=== PATIENT | female | born 1955 | race Caucasian/White ===

== ENCOUNTER 2020-10-07 19:34 | Observation (INO) ==
[2020-10-07] MEDS ORDERED: PROMETHAZINE INJ 25 MG in SODIUM CHLORIDE 0.9% 50 ML IV PRN (20:36)
[2020-10-07] MEDS ORDERED: chlorproMAZINE INJ 25 MG in SODIUM CHLORIDE 0.9% 100 ML IV PRN (20:36)
[2020-10-07] MEDS ORDERED: diphenhydrAMINE CAP 25 MG CAPSULE PO PRN (20:36)
[2020-10-07] MEDS ORDERED: ALUMINUM/MAGNES/SIMETH MAX STR 30 ML UDCUP PO PRN (20:36)
[2020-10-07] MEDS ORDERED: TEMAZEPAM 7.5 MG CAPSULE PO PRN (20:36)
[2020-10-07] MEDS ORDERED: MYLANTA/LIDO VISC 2:1 300 ML BOTTLE SWISH/SPIT PRN (20:36)
[2020-10-07] MEDS ORDERED: LOPERAMIDE 2 MG CAPSULE PO PRN ×2 (20:36)
[2020-10-07] MEDS ORDERED: BENZTROPINE 2 MG/2 ML AMP IV PRN (20:36)
[2020-10-07] MEDS ORDERED: LACTULOSE 20 GM/30 ML UDCUP PO PRN (20:36)
[2020-10-07] MEDS ORDERED: ONDANSETRON 4 MG/2 ML VIAL IV PRN (20:36)
[2020-10-07] MEDS ORDERED: ACETAMINOPHEN 325 MG TABLET PO PRN ×2 (20:36→20:40)
[2020-10-07] MEDS ORDERED: chlorproMAZINE INJ 50 MG in SODIUM CHLORIDE 0.9% 100 ML IV PRN (20:36)
[2020-10-07] MEDS ORDERED: traMADol 50 MG TABLET PO PRN (20:36)
[2020-10-07] MEDS ORDERED: MYLANTA/LIDO VISC 2:1 300 ML BOTTLE SWISH/SWAL PRN (20:36)
[2020-10-07] MEDS ORDERED: MAGNESIUM HYDROXIDE SUSP 30 ML UDCUP PO PRN (20:36)
[2020-10-07] MEDS ORDERED: guaiFENesin 200 MG/10 ML UDCUP PO PRN (20:36)
[2020-10-07] MEDS ORDERED: chlorproMAZINE 25 MG TABLET PO PRN (20:36)
[2020-10-07] MEDS ORDERED: SODIUM CHLORIDE 0.9% 1,000 ML IV PRN (20:40)
[2020-10-07] MEDS ORDERED: diphenhydrAMINE 50 MG/1 ML VIAL IV PRN (20:40)
[2020-10-07 21:19] LABS: Eosinophils % 4.7 % (0.00-10.9); Hematocrit 22.4 VOL% (35.7-47.0); Hemoglobin 8.3 GM/DL (12.0-16.0); Lymphocytes # 0.2 10*3/uL (1.4-4.0); Lymphocytes % 48.8 % (21.3-54.2); Mean Corpuscular HGB Conc 37.1 GM/DL (32-36); Mean Corpuscular Volume 94.1 FL (87-102); Mean Platelet Volume 9.4 FL (9.6-12.0); Monocytes % 9.3 % (1.7-12.7); Neutrophils % 37.2 % (38.7-73.9); Red Blood Count 2.38 MC/CUMM (3.8-5.5); Red Cell Distribution Width 13.5 % (9.3-17.3)
[2020-10-07 21:20] LABS: Platelet Count 4 T/CUMM (130-400); White Blood Count 0.4 T/CUMM (4-12)
[2020-10-07 21:46] LABS: Albumin 3.4 G/DL (3.4-5.0); Bilirubin,Total 1.1 MG/DL (0.2-1.0); Calcium 8.9 MG/DL (8.5-10.1)
[2020-10-07] MEDS: PIPERACILLIN/TAZOBACTAM 3,375 MG in SODIUM CHLORIDE 0.9% 100 ML IV SCH (23:10)
[2020-10-07 23:23] LABS: Eosinophils 1 % (0-10); Lymphocytes 45 % (20-55); Segmented Neutrophils 47 % (50-85); Total Cells Counted 100
[2020-10-07 23:29] LABS: Microcytosis 1+
[2020-10-07 23:30] LABS: Platelet Estimate Decreased; Polychromasia Slight
[2020-10-07 23:31] LABS: Spherocytes Slight
[2020-10-08 01:02] LABS: Eosinophils % 4.3 % (0.00-10.9); Hematocrit 18.3 VOL% (35.7-47.0); Hemoglobin 6.9 GM/DL (12.0-16.0); Immature Granulocytes % 4.3 %; Immature Granulocytes Absolute 0.01 #; Lymphocytes # 0.1 10*3/uL (1.4-4.0); Lymphocytes % 47.8 % (21.3-54.2); Mean Corpuscular HGB Conc 37.7 GM/DL (32-36); Mean Corpuscular Volume 93.4 FL (87-102); Mean Platelet Volume 11.1 FL (9.6-12.0); Monocytes % 8.7 % (1.7-12.7); Neutrophils % 34.9 % (38.7-73.9); Platelet Count 41 T/CUMM (130-400); Red Blood Count 1.96 MC/CUMM (3.8-5.5); Red Cell Distribution Width 13.5 % (9.3-17.3)
[2020-10-08 01:08] LABS: White Blood Count 0.2 T/CUMM (4-12)
[2020-10-08] MEDS: levETIRAcetam 500 MG TABLET PO SCH ×3 (01:12→21:21)
[2020-10-08] MEDS: ALPRAZolam 0.25 MG TABLET PO PRN (01:25)
[2020-10-08] MEDS ORDERED: SODIUM CHLORIDE 0.9% 1,000 ML IV PRN ×3 (01:48→03:46)
[2020-10-08 03:52] LABS: Eosinophils 3 % (0-10); Lymphocytes 49 % (20-55); Segmented Neutrophils 46 % (50-85); Total Cells Counted 101
[2020-10-08 03:53] LABS: Microcytosis Slight; Platelet Estimate Decreased; Spherocytes Slight
[2020-10-08 03:54] LABS: Polychromasia Slight
[2020-10-08 06:44] LABS: Hematocrit 18.8 VOL% (35.7-47.0); Hemoglobin 6.8 GM/DL (12.0-16.0); Lymphocytes # 0.1 10*3/uL (1.4-4.0); Mean Corpuscular HGB Conc 36.2 GM/DL (32-36); Monocytes % 13.6 % (1.7-12.7); Neutrophils % 36.4 % (38.7-73.9); Platelet Count 51 T/CUMM (130-400); Red Cell Distribution Width 13.4 % (9.3-17.3)
[2020-10-08 06:48] LABS: White Blood Count 0.2 T/CUMM (4-12)
[2020-10-08 07:06] LABS: Hypochromasia 2+; Lymphocytes 60 % (20-55); Microcytosis 1+; Platelet Estimate Decreased; Segmented Neutrophils 40 % (50-85); Total Cells Counted 100
[2020-10-08 07:12] LABS: Calcium 8.6 MG/DL (8.5-10.1)
[2020-10-08] MEDS: DEXAMETHASONE 4 MG TABLET PO SCH (09:32)
[2020-10-08] MEDS: PANTOPRAZOLE 40 MG TABLET PO SCH (09:35)
[2020-10-08] MEDS: AMITRIPTYLINE 25 MG TABLET PO SCH (09:35)
[2020-10-08] MEDS: FILGRASTIM-SNDZ 480 MCG/0.8 ML SYRINGE SUBCUT SCH (09:36)
[2020-10-08] MEDS ORDERED: levETIRAcetam 250 MG TABLET PO ONE (09:40)
[2020-10-08] MEDS ORDERED: CARBOXYMETHYLCELLULOSE 1% OPH SOLN LEFT EYE PRN (16:32)
[2020-10-08] MEDS: PIPERACILLIN/TAZOBACTAM 3,375 MG in SODIUM CHLORIDE 0.9% 100 ML IV SCH ×2 (17:24→17:36)
[2020-10-08] MEDS ORDERED: DEXAMETHASONE 4 MG TABLET PO SCH (19:00)
[2020-10-08] MEDS: levETIRAcetam 250 MG TABLET PO SCH (21:21)
[2020-10-09] MEDS: PIPERACILLIN/TAZOBACTAM 3,375 MG in SODIUM CHLORIDE 0.9% 100 ML IV SCH ×2 (01:39→04:24)
[2020-10-09 07:09] LABS: Eosinophils % 3.8 % (0.00-10.9); Hematocrit 24.9 VOL% (35.7-47.0); Immature Granulocytes % 11.5 %; Immature Granulocytes Absolute 0.03 #; Lymphocytes # 0.1 10*3/uL (1.4-4.0); Mean Corpuscular HGB Conc 36.1 GM/DL (32-36); Mean Corpuscular Volume 92.2 FL (87-102); Mean Platelet Volume 11.7 FL (9.6-12.0); Monocytes % 11.5 % (1.7-12.7); Neutrophils % 23.2 % (38.7-73.9); Red Cell Distribution Width 13.3 % (9.3-17.3)
[2020-10-09 07:14] LABS: White Blood Count 0.3 T/CUMM (4-12)
[2020-10-09 07:15] LABS: Platelet Count 56 T/CUMM (130-400)
[2020-10-09] MEDS: ALPRAZolam 0.25 MG TABLET PO PRN (07:22)
[2020-10-09 07:28] LABS: Hypochromasia 1+; Lymphocytes 40 % (20-55); Microcytosis Slight; Platelet Estimate Decreased; Segmented Neutrophils 20 % (50-85); Total Cells Counted 100
[2020-10-09 07:44] LABS: Albumin 2.8 G/DL (3.4-5.0); Bilirubin,Total 1.6 MG/DL (0.2-1.0); Calcium 8.8 MG/DL (8.5-10.1); Osmolality,Calculated 288.1 MOS/KG (273-304); Total Protein 5.4 G/DL (6.4-8.3)
[2020-10-09] MEDS: FILGRASTIM-SNDZ 480 MCG/0.8 ML SYRINGE SUBCUT SCH (08:43)
[2020-10-09] MEDS: levETIRAcetam 500 MG TABLET PO SCH (08:44)
[2020-10-09] MEDS: AMITRIPTYLINE 25 MG TABLET PO SCH (08:44)
[2020-10-09] MEDS: levETIRAcetam 250 MG TABLET PO SCH (08:44)
[2020-10-09] MEDS: DEXAMETHASONE 4 MG TABLET PO SCH (08:44)
[2020-10-09] MEDS: PANTOPRAZOLE 40 MG TABLET PO SCH (08:44)
[2020-10-09 12:10] VITALS: BP 146/78
[2020-10-09] MEDS ORDERED: CARBOXYMETHYLCELLULOSE 1% OPH SOLN LEFT EYE SCH (12:30)
== END 2020-10-09 15:30 | disposition home or self-care (01) ==
LOC: N.4E
PROVIDERS: ADMIT Internal Medicine Hematology & Oncology; ATTEND Internal Medicine Hematology & Oncology

== ENCOUNTER 2021-03-13 18:50 | Inpatient (IN) ==
[2021-03-13] MEDS ORDERED: SODIUM CHLORIDE 0.9% 1,000 ML IV STA (19:26)
[2021-03-13] MEDS ORDERED: ONDANSETRON 4 MG/2 ML VIAL IV STA (19:26)
[2021-03-13 19:34] LABS: Basophils % 0.3 % (0.0-0.8); Eosinophils % 0.3 % (0.00-10.9); Hematocrit 39.4 VOL% (35.7-47.0); Hemoglobin 13.2 GM/DL (12.0-16.0); Immature Granulocytes % 2.6 %; Immature Granulocytes Absolute 0.08 #; Lymphocytes # 0.2 10*3/uL (1.4-4.0); Lymphocytes % 7.9 % (21.3-54.2); Mean Corpuscular HGB Conc 33.5 GM/DL (32-36); Mean Corpuscular Volume 97.3 FL (87-102); Monocytes % 14.2 % (1.7-12.7); NRBC # 0.08 10*3/uL; Neutrophils % 74.7 % (38.7-73.9); Red Blood Count 4.05 MC/CUMM (3.8-5.5); Red Cell Distribution Width 19.5 % (9.3-17.3)
[2021-03-13 19:41] LABS: Platelet Count 18 T/CUMM (130-400)
[2021-03-13 19:51] LABS: Albumin 2.9 G/DL (3.4-5.0); Calcium 8.6 MG/DL (8.5-10.1); Osmolality,Calculated 281.3 MOS/KG (273-304); Potassium 2.6 MMOL/L (3.5-5.1); Total Protein 5.9 G/DL (6.4-8.2)
[2021-03-13 19:54] LABS: Bacteria,Urine Occasional /HPF (Few); Bilirubin,Urine Negative (Negative); Blood, Urine Small mg/dL (Negative); Glucose,Urine (UA) Negative (Negative); Ketones,Urine Negative (Negative); Mucus,Urine Occasional /LPF (Occasional); Nitrite,Urine Negative (Negative); Protein,Urine Negative; RBC,Urine 1 /HPF (0-4); Urine Appearance Slightly Hazy (Clear); Urine Color Amber (Yellow); Urine Specific Gravity 1.016 (1.001-1.035); WBC,Urine 25 /HPF (0-6)
[2021-03-13 20:01] LABS: Band Neutrophils 1 % (0-10); Lymphocytes 9 % (20-55); Nucleated Red Blood Cells 1 (0-5); Segmented Neutrophils 81 % (50-85); Total Cells Counted 100; Toxic Granulation 1+
[2021-03-13 20:02] LABS: Platelet Estimate Decreased
[2021-03-13 20:03] LABS: Microcytosis Slight; Ovalocytes Few; Polychromasia 1+
[2021-03-13] MEDS ORDERED: CLINDAMYCIN INJ 600 MG in PREMIX 1 EACH IV STA (20:24)
[2021-03-13] MEDS ORDERED: ONDANSETRON 4 MG/2 ML VIAL IV PRN (21:31)
[2021-03-13] MEDS ORDERED: GLUCAGON 1 MG VIAL IM PRN (21:31)
[2021-03-13] MEDS ORDERED: DEXTROSE 50% 25 GM/50 ML VIAL IV PRN (21:31)
[2021-03-13] MEDS ORDERED: POTASSIUM CHLORIDE 20 MEQ TABLET PO ONE (21:33)
[2021-03-13] MEDS ORDERED: diphenhydrAMINE CAP 25 MG CAPSULE PO PRN (21:38)
[2021-03-13] MEDS ORDERED: PROMETHAZINE 25 MG/1 ML VIAL IM PRN (21:38)
[2021-03-13] MEDS ORDERED: SODIUM CHLORIDE 0.9% 1,000 ML IV PRN (21:38)
[2021-03-13] MEDS ORDERED: NICOTINE 21 MG/24 HR PATCH TRANSDERM PRN (21:38)
[2021-03-13] MEDS ORDERED: cefTRIAXone 1,000 MG in SODIUM CHLORIDE 0.9% 100 ML IV SCH (22:00)
[2021-03-13] MEDS: SODIUM CHLOR 0.9% KCL 20 MEQ 20 MEQ/1,000 ML BAG IV SCH (23:59)
[2021-03-14] MEDS: metroNIDAZOLE INJ 500 MG in PREMIX 1 EACH IV SCH ×3 (00:40→23:58)
[2021-03-14 05:27] LABS: Basophils % 0.5 % (0.0-0.8); Eosinophils % 0.5 % (0.00-10.9); Hematocrit 31.5 VOL% (35.7-47.0); Immature Granulocytes % 1.8 %; Immature Granulocytes Absolute 0.04 #; Lymphocytes # 0.1 10*3/uL (1.4-4.0); Lymphocytes % 5.9 % (21.3-54.2); Mean Corpuscular HGB Conc 32.4 GM/DL (32-36); Mean Corpuscular Volume 100.3 FL (87-102); Mean Platelet Volume 10.4 FL (9.6-12.0); Monocytes % 16.7 % (1.7-12.7); NRBC # 0.03 10*3/uL; Neutrophils % 74.6 % (38.7-73.9); Red Cell Distribution Width 19.6 % (9.3-17.3); White Blood Count 2.2 T/CUMM (4-12)
[2021-03-14 05:33] LABS: Hemoglobin 10.2 GM/DL (12.0-16.0); Platelet Count 50 T/CUMM (130-400); Red Blood Count 3.14 MC/CUMM (3.8-5.5)
[2021-03-14 05:48] LABS: Band Neutrophils 1 % (0-10); Hypochromasia 1+; Lymphocytes 8 % (20-55); Microcytosis 1+; Platelet Estimate Decreased; Segmented Neutrophils 79 % (50-85); Total Cells Counted 100
[2021-03-14] MEDS: ACETAMINOPHEN 325 MG TABLET PO PRN ×4 (06:01→22:42)
[2021-03-14 07:46] LABS: Albumin 2.4 G/DL (3.4-5.0); Bilirubin,Total 1.2 MG/DL (0.2-1.0); Osmolality,Calculated 279.3 MOS/KG (273-304); Potassium 3.1 MMOL/L (3.5-5.1); Total Protein 5.1 G/DL (6.4-8.2)
[2021-03-14] MEDS: SODIUM CHLOR 0.9% KCL 20 MEQ 20 MEQ/1,000 ML BAG IV SCH ×3 (09:42→22:47)
[2021-03-14] MEDS ORDERED: DEXAMETHASONE INJ 4 MG in SODIUM CHLORIDE 0.9% 50 ML IV SCH (13:00)
[2021-03-14] MEDS: levETIRAcetam 500 MG TABLET PO SCH ×2 (13:49→22:46)
[2021-03-14] MEDS: PANTOPRAZOLE 40 MG VIAL IV SCH ×2 (13:50→22:47)
[2021-03-14 14:10] LABS: Hepatitis B Core IgM Quant 0.09 Index; Hepatitis B Surface Ag Quant < 0.10 Index; Hepatitis B Surface Ag Result Non-Reactive (NonReactive); Hepatitis C Virus Ab Quant 0.12 Index; Hepatitis C Virus Ab Result Non-Reactive (NonReactive)
[2021-03-14] MEDS: CEFEPIME 1,000 MG in SODIUM CHLORIDE 0.9% 100 ML IV SCH ×2 (16:02→22:49)
[2021-03-15 05:47] LABS: Basophils % 0.4 % (0.0-0.8); Eosinophils % 0.4 % (0.00-10.9); Hematocrit 31.7 VOL% (35.7-47.0); Hemoglobin 9.9 GM/DL (12.0-16.0); Immature Granulocytes % 4.8 %; Immature Granulocytes Absolute 0.11 #; Lymphocytes # 0.1 10*3/uL (1.4-4.0); Lymphocytes % 6.1 % (21.3-54.2); Mean Corpuscular HGB Conc 31.2 GM/DL (32-36); Mean Corpuscular Volume 102.3 FL (87-102); Mean Platelet Volume 12.4 FL (9.6-12.0); Monocytes % 14.3 % (1.7-12.7); NRBC # 0.02 10*3/uL; Platelet Count 51 T/CUMM (130-400); Red Cell Distribution Width 19.9 % (9.3-17.3); White Blood Count 2.3 T/CUMM (4-12)
[2021-03-15 06:13] LABS: Albumin 2.2 G/DL (3.4-5.0); Bilirubin,Total 0.9 MG/DL (0.2-1.0); Calcium 8.1 MG/DL (8.5-10.1); Osmolality,Calculated 284.8 MOS/KG (273-304); Potassium 3.5 MMOL/L (3.5-5.1); Total Protein 4.8 G/DL (6.4-8.2)
[2021-03-15 06:38] LABS: Lymphocytes 5 % (20-55); Nucleated Red Blood Cells 1 (0-5); Platelet Estimate Decreased; Segmented Neutrophils 84 % (50-85); Total Cells Counted 100
[2021-03-15 06:39] LABS: Hypochromasia Slight; Macrocytosis Slight; Polychromasia Slight
[2021-03-15] MEDS ORDERED: MAGNESIUM SULF RIDER 2 GM in PREMIX 1 EACH IV PRN (07:12)
[2021-03-15] MEDS ORDERED: MAGNESIUM SULF RIDER 4 GM in PREMIX 1 EACH IV PRN (07:12)
[2021-03-15] MEDS: CEFEPIME 1,000 MG in SODIUM CHLORIDE 0.9% 100 ML IV SCH ×3 (08:18→23:31)
[2021-03-15] MEDS: SODIUM CHLOR 0.9% KCL 20 MEQ 20 MEQ/1,000 ML BAG IV SCH ×3 (08:23→23:29)
[2021-03-15] MEDS: PANTOPRAZOLE 40 MG VIAL IV SCH ×2 (08:23→20:18)
[2021-03-15] MEDS: levETIRAcetam 500 MG TABLET PO SCH ×2 (08:24→20:18)
[2021-03-15] MEDS ORDERED: DEXAMETHASONE INJ 4 MG in SODIUM CHLORIDE 0.9% 50 ML IV SCH (09:00)
[2021-03-15] MEDS: VANCOMYCIN 50 MG/ML 60 ML/BOTTLE PO SCH ×4 (10:14→23:27)
[2021-03-15] MEDS: ACETAMINOPHEN 325 MG TABLET PO PRN (18:03)
[2021-03-16 05:28] LABS: Basophils % 0.3 % (0.0-0.8); Hematocrit 33.1 VOL% (35.7-47.0); Hemoglobin 10.8 GM/DL (12.0-16.0); Immature Granulocytes % 4.2 %; Immature Granulocytes Absolute 0.13 #; Lymphocytes # 0.2 10*3/uL (1.4-4.0); Lymphocytes % 7.1 % (21.3-54.2); Mean Corpuscular HGB Conc 32.6 GM/DL (32-36); Mean Corpuscular Volume 99.1 FL (87-102); Monocytes % 10.3 % (1.7-12.7); NRBC # 0.05 10*3/uL; Neutrophils % 78.1 % (38.7-73.9); Red Blood Count 3.34 MC/CUMM (3.8-5.5); Red Cell Distribution Width 19.5 % (9.3-17.3); White Blood Count 3.1 T/CUMM (4-12)
[2021-03-16] MEDS: VANCOMYCIN 50 MG/ML 60 ML/BOTTLE PO SCH ×3 (05:44→17:26)
[2021-03-16 05:56] LABS: Albumin 2.2 G/DL (3.4-5.0); Bilirubin,Total 1.9 MG/DL (0.2-1.0); Calcium 8.2 MG/DL (8.5-10.1); Potassium 3.7 MMOL/L (3.5-5.1); Total Protein 5.1 G/DL (6.4-8.2)
[2021-03-16 06:09] LABS: Platelet Count 29 T/CUMM (130-400)
[2021-03-16 07:01] LABS: Anisocytosis 1+; Band Neutrophils 2 % (0-10); Lymphocytes 7 % (20-55); Macrocytosis 1+; Metamyelocytes 2 %; Nucleated Red Blood Cells 5 (0-5); Ovalocytes 1+; Platelet Estimate Decreased; Segmented Neutrophils 77 % (50-85); Total Cells Counted 100
[2021-03-16] MEDS: CEFEPIME 1,000 MG in SODIUM CHLORIDE 0.9% 100 ML IV SCH ×3 (08:05→23:06)
[2021-03-16] MEDS: levETIRAcetam 500 MG TABLET PO SCH ×2 (08:05→21:19)
[2021-03-16] MEDS: PANTOPRAZOLE 40 MG VIAL IV SCH ×2 (08:05→21:20)
[2021-03-16] MEDS ORDERED: METOPROLOL SUCCINATE XL 25 MG TABLET PO SCH (09:00)
[2021-03-16] MEDS: hydrALAZINE 20 MG/1 ML VIAL IV PRN (09:08)
[2021-03-16] MEDS: DEXAMETHASONE INJ 4 MG in SODIUM CHLORIDE 0.9% 50 ML IV SCH (09:50)
[2021-03-16] MEDS ORDERED: LABETALOL 20 MG/4 ML SYRINGE IV ONE (11:35)
[2021-03-16 12:11] LABS: Bacteria,Urine Few /HPF (Few); Bilirubin,Urine Negative (Negative); Blood, Urine Small mg/dL (Negative); Glucose,Urine (UA) Negative (Negative); Hyaline Casts,Urine 11 /LPF (0-3); Ketones,Urine 80 mg/dL (Negative); Mucus,Urine Few /LPF (Occasional); Nitrite,Urine Negative (Negative); Protein,Urine 30 MG/DL; RBC,Urine 3 /HPF (0-4); Renal Epithelial Cells,Urine Occasional /HPF (<1); Squamous Epithelial Cell,Urine Occasional /HPF (0-10); Urine Appearance CLEAR (Clear); Urine Color Yellow (Yellow); Urine Specific Gravity 1.026 (1.001-1.035); Urine Urobilinogen < 2.0 EU/DL (0.2-1.0); WBC,Urine 2 /HPF (0-6)
[2021-03-16] MEDS ORDERED: LABETALOL 20 MG/4 ML SYRINGE IV PRN (13:16)
[2021-03-16] MEDS: SODIUM CHLOR 0.9% KCL 20 MEQ 20 MEQ/1,000 ML BAG IV SCH ×2 (13:27→15:29)
[2021-03-16] MEDS ORDERED: MORPHINE 4 MG/1 ML VIAL IV PRN (13:27)
[2021-03-16] MEDS: OLMESARTAN 20 MG TABLET PO SCH (14:20)
[2021-03-16] MEDS ORDERED: MYLANTA/LIDO VISC 2:1 300 ML BOTTLE SWISH/SWAL PRN (17:29)
[2021-03-17] MEDS: VANCOMYCIN 50 MG/ML 60 ML/BOTTLE PO SCH ×4 (00:02→17:23)
[2021-03-17] MEDS: SODIUM CHLOR 0.9% KCL 20 MEQ 20 MEQ/1,000 ML BAG IV SCH ×2 (05:08→20:25)
[2021-03-17 05:30] LABS: Basophils % 0.3 % (0.0-0.8); Hematocrit 30.6 VOL% (35.7-47.0); Hemoglobin 10.1 GM/DL (12.0-16.0); Immature Granulocytes % 4.5 %; Immature Granulocytes Absolute 0.16 #; Lymphocytes # 0.3 10*3/uL (1.4-4.0); Lymphocytes % 8.7 % (21.3-54.2); Mean Corpuscular Volume 98.4 FL (87-102); Monocytes % 10.6 % (1.7-12.7); Neutrophils % 75.9 % (38.7-73.9); Red Blood Count 3.11 MC/CUMM (3.8-5.5); Red Cell Distribution Width 19.6 % (9.3-17.3); White Blood Count 3.6 T/CUMM (4-12)
[2021-03-17 05:42] LABS: Platelet Count 16 T/CUMM (130-400)
[2021-03-17 05:50] LABS: Albumin 2.1 G/DL (3.4-5.0); Bilirubin,Total 0.9 MG/DL (0.2-1.0); Calcium 8.1 MG/DL (8.5-10.1); Potassium 3.8 MMOL/L (3.5-5.1)
[2021-03-17 05:51] LABS: Band Neutrophils 1 % (0-10); Hypochromasia 1+; Lymphocytes 8 % (20-55); Microcytosis 1+; Nucleated Red Blood Cells 2 (0-5); Platelet Estimate Decreased; Segmented Neutrophils 79 % (50-85); Total Cells Counted 100
[2021-03-17] MEDS: hydrALAZINE 20 MG/1 ML VIAL IV PRN ×2 (09:00→20:24)
[2021-03-17] MEDS: DEXAMETHASONE INJ 4 MG in SODIUM CHLORIDE 0.9% 50 ML IV SCH ×2 (09:02→10:22)
[2021-03-17] MEDS: PANTOPRAZOLE 40 MG VIAL IV SCH ×2 (09:02→20:25)
[2021-03-17] MEDS: OLMESARTAN 20 MG TABLET PO SCH (09:02)
[2021-03-17] MEDS: METOPROLOL SUCCINATE XL 50 MG TABLET PO SCH (09:02)
[2021-03-17] MEDS: levETIRAcetam 500 MG TABLET PO SCH ×2 (09:02→20:24)
[2021-03-17] MEDS ORDERED: LOPERAMIDE 2 MG CAPSULE PO PRN ×2 (09:23)
[2021-03-17] MEDS ORDERED: ALPRAZolam 0.25 MG TABLET PO PRN (09:23)
[2021-03-17] MEDS ORDERED: PROMETHAZINE INJ 25 MG in SODIUM CHLORIDE 0.9% 50 ML IV PRN (09:23)
[2021-03-17] MEDS ORDERED: ONDANSETRON 4 MG/2 ML VIAL IV PRN (09:23)
[2021-03-17] MEDS ORDERED: chlorproMAZINE INJ 50 MG in SODIUM CHLORIDE 0.9% 100 ML IV PRN (09:23)
[2021-03-17] MEDS ORDERED: diphenhydrAMINE CAP 25 MG CAPSULE PO PRN (09:23)
[2021-03-17] MEDS ORDERED: LACTULOSE 20 GM/30 ML UDCUP PO PRN (09:23)
[2021-03-17] MEDS ORDERED: TEMAZEPAM 7.5 MG CAPSULE PO PRN (09:23)
[2021-03-17] MEDS ORDERED: guaiFENesin 200 MG/10 ML UDCUP PO PRN (09:23)
[2021-03-17] MEDS ORDERED: chlorproMAZINE INJ 25 MG in SODIUM CHLORIDE 0.9% 100 ML IV PRN (09:23)
[2021-03-17] MEDS ORDERED: traMADol 50 MG TABLET PO PRN (09:23)
[2021-03-17] MEDS: CEFEPIME 1,000 MG in SODIUM CHLORIDE 0.9% 100 ML IV SCH ×2 (09:35→17:23)
[2021-03-17] MEDS ORDERED: SODIUM CHLORIDE 0.9% 1,000 ML IV PRN (10:26)
[2021-03-18] MEDS: CEFEPIME 1,000 MG in SODIUM CHLORIDE 0.9% 100 ML IV SCH ×2 (00:08→06:06)
[2021-03-18] MEDS: VANCOMYCIN 50 MG/ML 60 ML/BOTTLE PO SCH ×4 (00:08→18:20)
[2021-03-18 04:47] LABS: Basophils % 0.3 % (0.0-0.8); Hematocrit 28.2 VOL% (35.7-47.0); Hemoglobin 8.8 GM/DL (12.0-16.0); Immature Granulocytes % 4.8 %; Immature Granulocytes Absolute 0.19 #; Lymphocytes # 0.4 10*3/uL (1.4-4.0); Lymphocytes % 9.2 % (21.3-54.2); Mean Corpuscular HGB Conc 31.2 GM/DL (32-36); Mean Corpuscular Volume 102.2 FL (87-102); Mean Platelet Volume 10.9 FL (9.6-12.0); Monocytes % 11.2 % (1.7-12.7); NRBC # 0.12 10*3/uL; Neutrophils % 74.5 % (38.7-73.9); Red Blood Count 2.76 MC/CUMM (3.8-5.5); Red Cell Distribution Width 19.9 % (9.3-17.3); White Blood Count 3.9 T/CUMM (4-12)
[2021-03-18 04:50] LABS: Platelet Count 50 T/CUMM (130-400)
[2021-03-18 04:59] LABS: Calcium 8.1 MG/DL (8.5-10.1); Osmolality,Calculated 291.7 MOS/KG (273-304); Potassium 3.7 MMOL/L (3.5-5.1)
[2021-03-18 05:06] LABS: Hypochromasia 1+; Lymphocytes 8 % (20-55); Microcytosis 1+; Nucleated Red Blood Cells 1 (0-5); Ovalocytes Slight; Platelet Estimate Decreased; Segmented Neutrophils 81 % (50-85); Total Cells Counted 100
[2021-03-18] MEDS: DEXAMETHASONE INJ 4 MG in SODIUM CHLORIDE 0.9% 50 ML IV SCH (09:18)
[2021-03-18] MEDS: METOPROLOL SUCCINATE XL 50 MG TABLET PO SCH (09:18)
[2021-03-18] MEDS: OLMESARTAN 20 MG TABLET PO SCH (09:18)
[2021-03-18] MEDS: levETIRAcetam 500 MG TABLET PO SCH ×2 (09:18→21:08)
[2021-03-18] MEDS: PANTOPRAZOLE 40 MG VIAL IV SCH ×2 (09:19→21:08)
[2021-03-18] MEDS: SODIUM CHLOR 0.9% KCL 20 MEQ 20 MEQ/1,000 ML BAG IV SCH (11:31)
[2021-03-19] MEDS: VANCOMYCIN 50 MG/ML 60 ML/BOTTLE PO SCH ×3 (00:15→13:20)
[2021-03-19] MEDS: SODIUM CHLOR 0.9% KCL 20 MEQ 20 MEQ/1,000 ML BAG IV SCH ×2 (00:15→10:34)
[2021-03-19 06:03] LABS: Basophils % 0.2 % (0.0-0.8); Hematocrit 27.2 VOL% (35.7-47.0); Hemoglobin 8.5 GM/DL (12.0-16.0); Immature Granulocytes % 3.7 %; Immature Granulocytes Absolute 0.15 #; Lymphocytes # 0.3 10*3/uL (1.4-4.0); Lymphocytes % 6.9 % (21.3-54.2); Mean Corpuscular HGB Conc 31.3 GM/DL (32-36); Mean Corpuscular Volume 102.6 FL (87-102); Monocytes % 12.8 % (1.7-12.7); NRBC # 0.16 10*3/uL; Neutrophils % 76.4 % (38.7-73.9); Red Blood Count 2.65 MC/CUMM (3.8-5.5); Red Cell Distribution Width 20.6 % (9.3-17.3); White Blood Count 4.1 T/CUMM (4-12)
[2021-03-19 06:05] LABS: Platelet Count 35 T/CUMM (130-400)
[2021-03-19 06:21] LABS: Band Neutrophils 3 % (0-10); Hypochromasia 1+; Lymphocytes 2 % (20-55); Nucleated Red Blood Cells 1 (0-5); Ovalocytes Slight; Platelet Estimate Decreased; Segmented Neutrophils 84 % (50-85); Total Cells Counted 100
[2021-03-19 06:22] LABS: Macrocytosis Slight; Polychromasia Slight
[2021-03-19 06:25] LABS: Calcium 8.2 MG/DL (8.5-10.1); Osmolality,Calculated 291.7 MOS/KG (273-304); Potassium 3.7 MMOL/L (3.5-5.1)
[2021-03-19] MEDS: PANTOPRAZOLE 40 MG VIAL IV SCH (09:10)
[2021-03-19] MEDS: OLMESARTAN 20 MG TABLET PO SCH (09:10)
[2021-03-19] MEDS: levETIRAcetam 500 MG TABLET PO SCH (09:10)
[2021-03-19] MEDS: DEXAMETHASONE INJ 4 MG in SODIUM CHLORIDE 0.9% 50 ML IV SCH (09:10)
[2021-03-19] MEDS: METOPROLOL SUCCINATE XL 50 MG TABLET PO SCH (09:10)
[2021-03-19] MEDS ORDERED: HEPARIN LOCK FLUSH 500 UNIT/5 ML SYRINGE IV ONE (10:17)
[2021-03-19 11:23] VITALS: BP 147/79
== END 2021-03-19 14:20 | disposition hospice, home (50) | DRG 371 ==
LOC: EDUNIT# → EDBD → N.ED 18:50 → N.EDINP 21:31 → SUATTDRO 21:31 → N.EDINP 22:55 → N.4E 23:24
PROVIDERS: ADMIT Internal Medicine; ATTEND Internal Medicine